=== PATIENT | male | born 1985 | race Caucasian/White ===

== ENCOUNTER → 2018-10-31 | Outpatient (CLI) | payer OTHER, SELFPAY ==
--- NOTE | 2018-10-31 10:39 | REP ---
RIGHT KNEE, FIVE VIEWS: HISTORY: Knee pain. There is no acute fracture or dislocation. The joint spaces are normal in appearance. IMPRESSION: There is no acute fracture or dislocation. Electronically Signed by Shreyas Elena MD 10/31/2018 10:43 A
== END ==
LOC: M LRY 09:56
PROVIDERS: ATTEND Nurse Practitioner Family
DX: M25.561 Pain in right knee (principal)
CPT/HCPCS: 73564; G0463